=== PATIENT | female | born 1955 | race Caucasian/White ===

== ENCOUNTER 2020-11-26 01:05 | Inpatient (IN) ==
[2020-11-26] MEDS ORDERED: SODIUM CHLORIDE 500 ML IV STA (01:31)
[2020-11-26 01:40] LABS: BASOPHILS % (AUTO) 0.2 % (0.0-3.0); EOSINOPHILS # (AUTO) 0.1 K/ul (0.0-0.7); EOSINOPHILS % (AUTO) 0.8 % (0.0-7.0); HEMATOCRIT 38.6 % (37.0-47.0); HEMOGLOBIN 12.8 g/dl (12.0-16.0); IMMATURE GRANULOCYTE % (AUTO) 0.3 % (0.0-5.0); LYMPHOCYTES # (AUTO) 1.2 K/uL (0.60-3.4); LYMPHOCYTES % (AUTO) 12.3 (10.0-50.0); MEAN CORPUSCULAR HEMOGLOBIN 29.9 pg (27.0-31.0); MEAN CORPUSCULAR HGB CONC 33.2 (31.8-35.4); MEAN CORPUSCULAR VOLUME 90.2 fl (81.0-99.0); MONOCYTES # (AUTO) 0.3 K/uL (0.4-2.0); MONOCYTES % (AUTO) 3.1 (0-10); NEUTROPHILS # (AUTO) 8.3 K/ul (2.0-6.9); NEUTROPHILS % (AUTO) 83.3 % (42.2-75.2); PLATELET COUNT 347 10^3/uL (140-440); RDW COEFFICIENT OF VARIATION 12.4 % (11.6-14.8); RED BLOOD COUNT 4.28 10^6/ul (4.20-5.40)
[2020-11-26 01:46] LABS: BORDETELLA PARAPERTUSSIS (PCR) NOT DETECTED (NOT DETECT); BORDETELLA PERTUSSIS (PCR) NOT DETECTED (NOT DETECT); CHLAMYDIA PNEUMONIAE (PCR) NOT DETECTED (NOT DETECT); CORONAVIRUS 229E (PCR) NOT DETECTED (NOT DETECT); CORONAVIRUS HKU1 (PCR) NOT DETECTED (NOT DETECT); CORONAVIRUS NL63 (PCR) NOT DETECTED (NOT DETECT); CORONAVIRUS OC43 (PCR) NOT DETECTED (NOT DETECT); HUMAN METAPNEUMOVIRUS (PCR) NOT DETECTED (NOT DETECT); HUMAN RHINOVIRUS/ENTEROV (PCR) NOT DETECTED (NOT DETECT); INFLUENZA B (PCR) NOT DETECTED (NOT DETECT); MYCOPLASMA PNEUMONIAE (PCR) NOT DETECTED (NOT DETECT); PARAINFLUENZA VIRUS 1 (PCR) NOT DETECTED (NOT DETECT); PARAINFLUENZA VIRUS 2 (PCR) NOT DETECTED (NOT DETECT); PARAINFLUENZA VIRUS 3 (PCR) NOT DETECTED (NOT DETECT); PARAINFLUENZA VIRUS 4 (PCR) NOT DETECTED (NOT DETECT); RESPIRATORY SYNCYTIAL V (PCR) NOT DETECTED (NOT DETECT); SARS_COV_2 (PCR) NOT DETECTED (NOT DETECT)
[2020-11-26 01:52] LABS: ALANINE AMINOTRANSFERASE 25.4 U/L (0-35); ALBUMIN 3.93 g/dL (3.5-5.0); ALKALINE PHOSPHATASE 144.7 U/L (53-141); AMYLASE 43.1 U/L (30-110); ASPARTATE AMINO TRANSFERASE 34.8 U/L (14-36); BILIRUBIN,TOTAL 0.69 mg/dL (0.2-1.3); BLOOD UREA NITROGEN 16.3 mg/dL (7-17); CALCIUM 8.84 mg/dL (8.4-10.2); CARBON DIOXIDE 28.3 mmol/L (22-30.0); CHLORIDE 100.7 mmol/L (98-107); CREATINE KINASE 36.1 U/L (30-135); CREATININE 0.86 mg/dL (0.60-1.30); GLUCOSE 247.6 mg/dL (74-106); LIPASE 58.1 U/L (23-300); POTASSIUM 4.07 mmol/L (3.5-5.1); SODIUM 137.3 mmol/L (134.5-145); TOTAL PROTEIN 7.69 g/dL (6.3-8.2)
[2020-11-26 02:04] LABS: TROPONIN I 0.015 ng/ml (0.0000-0.120)
--- NOTE | 2020-11-26 02:15 | CT ---
EXAM: CT scan brain without contrast HISTORY: Altered mental status COMPARISON: None. FINDINGS: Contiguous axial images obtained from skull base to the convexities without contrast utili zing 5-mm collimation. Sagittal and coronal reconstructions were imaged and reviewed.. The ventricl es and CSF spaces are prominent compatible with age appropriate atrophy. There is periventricular hy podensity noted compatible with chronic microvascular disease. There are no acute intracranial findi ngs. Atherosclerotic changes are seen involving the bilateral vertebral and cavernous internal carot id arteries. The visualized paranasal sinuses mastoid air cells are clear. The calvarium is intact. IMPRESSION: No acute intracranial findings All CT scans are performed using dose optimization techniques as appropriate to the performed exam an d include at least one of the following: Automated exposure control, adjustment of the mA and/or kV according t o size, and the use of iterative reconstruction technique.
[2020-11-26] MEDS ORDERED: VASOTEC IV IVP STA (02:16)
[2020-11-26] MEDS ORDERED: TRANDATE IVP STA (02:17)
[2020-11-26 02:18] LABS: ABG PH 7.39 (7.35-7.45); BEecf 2.2 (-2.0-3.0)
[2020-11-26 02:19] LABS: COHb 2.6 (0.5-1.5); HCO3 27.2 (21-28); TCO2 28.1 (19-24); sO2 87.9 % (94-98); tHb 13.3 g/dl (11.7-17.4)
[2020-11-26 02:20] LABS: ABG O2 HGB 90.2 % (95-100)
--- NOTE | 2020-11-26 02:23 | CT ---
EXAM: CT of the abdomen and pelvis without contrast. HISTORY: Vomiting. PROCEDURE: Contiguous axial CT images of the abdomen and pelvis without contrast with coronal and sa gittal reformats. All CT scans are performed using dose optimization techniques as appropriate to a performed exam including the following: Automated exposure control, Adjustment of the mA and/or kV ac cording to patient size, Use of iterative reconstruction technique. FINDINGS: There is minimal bibasilar atelectasis. The liver is normal in appearance. There are gall stones in the gallbladder. The gallbladder is within normal limits in size. The pancreas, spleen, a drenal glands and kidneys are normal in appearance. The abdominal aorta is within normal limits in s ize. The appendix is normal in appearance. There is fecal stasis in the colon. There is diverticul osis of the colon with no evidence of diverticulitis. No free fluid or free air in the abdomen or pe lvis. The bladder is adequately filled and normal in appearance. The uterus is surgically absent. There are two fluid density cyst in the left adnexa measuring up to 2.6 cm. There is minimal strandin g of the subcutaneous fat in the anterior wall of the pelvis, consistent with cellulitis. There are degenerative changes in the spine. Impression: Cholelithiasis as described. Colonic diverticulosis without diverticulitis. Colonic fecal stasis as described. Left adnexal simple cysts measuring up to 2.6 cm. Cellulitis as described. Hysterectomy. Bibasilar atelectasis. All CT scans are performed using dose optimization techniques as appropriate to the performed exam an d include at least one of the following: Automated exposure control, adjustment of the mA and/or kV according t o size, and the use of iterative reconstruction technique.
--- NOTE | 2020-11-26 02:25 | DI ---
EXAM: AP single view of the chest. HISTORY: Vomiting. FINDINGS: The bones are unremarkable. The cardiac silhouette is enlarged. The pulmonary vasculature is within normal limits. The costophrenic angles are clear. There is eventration of the right randy diaphragm. No infiltrate or consolidation. Impression: Cardiomegaly. Eventration of the right hemidiaphragm.
[2020-11-26 02:30] LABS: ADENOVIRUS (PCR) NOT DETECTED (NOT DETECT)
[2020-11-26 03:30] LABS: BILIRUBIN,URINE Negative (NEGATIVE); CLARITY,URINE Cloudy (CLEAR); COLOR,URINE Yellow (YELLOW); GLUCOSE, URINE (UA) 2+ (NEGATIVE); KETONES,URINE 2+ (NEGATIVE); LEUKOCYTE ESTERASE ,URINE Negative (NEGATIVE); NITRITE,URINE Positive (NEGATIVE); PH,URINE 6.5 (5-9); PROTEIN,URINE 2+ (NEGATIVE); URINE, BLOOD Trace-intact (NEGATIVE)
[2020-11-26 03:35] LABS: BACTERIA,URINE 4+ (NOT PRESENT)
[2020-11-26 03:39] LABS: AMPHETAMINE SCREEN,URINE NEGATIVE (NEGATIVE); BARBITURATE SCREEN,URINE NEGATIVE (NEGATIVE); BENZODIAZEPINES SCREEN,URINE NEGATIVE (NEGATIVE); CANNABINOID SCREEN,URINE NEGATIVE (NEGATIVE); COCAIN SCREEN,URINE NEGATIVE (NEGATIVE); METHADONE URINE SCREEN NEGATIVE (NEGATIVE); METHAMPHETAMINES SCREEN,URINE POSITIVE (NEGATIVE); OPIATE SCREEN,URINE NEGATIVE (NEGATIVE); OXYCODONE URINE SCREEN NEGATIVE (NEGATIVE); PHENCYCLIDINE SCREEN,URINE NEGATIVE (NEGATIVE); PROPOXYPHENE URINE SCREEN NEGATIVE (NEGATIVE); TRICYCLIC ANTIDEPRESSANTS URIN NEGATIVE (NEGATIVE)
[2020-11-26] MEDS ORDERED: ROCEPHIN 1 GM/50 ML D5W 1 GM/50 ML BAG IV STA (03:53)
--- NOTE | 2020-11-26 03:57 | ED.PDOC ---
General ED Provider: Dr. GAB TRAYLOR Chief Complaint: Non-specific Complaint Stated Complaint: she is not acting right--she is very sleepy and diffcult to rouse Time Seen by Provider: 11/26/20 01:15 Mode of Arrival: Wheelchair Information Source: Family and Other Exam Limitations: Altered mental status Primary Care Provider: JASIEL CAMP MD Nursing and Triage Documentation Reviewed and Agree: Yes Does patient meet sepsis criteria?: No System Inflammatory Response Syndrome: Not Applicable Sepsis Protocol: For patient's 13 years and over: Temp is 96.8 and below OR 101 and greater Pulse >90 BPM Resp >20/minute Acutely Altered Mental Status Are patient's symptoms suggestive of a new infection, such as: -Pneumonia -Skin, Soft Tissue -Endocarditis -UTI -Bone, Joint Infection -Implantable Device -Acute Abdominal Infection -Wound Infection -Meningitis -Blood Stream Catheter Infection -Unknown Neurological Complaint Exam Altered Mental Status Complaint/Exam Current Mental Status: Unresponsiveness Last Known Well: yesterday Onset: Sudden Duration: several hours Symptoms Are: Still present Timing: Constant Episodes Lasting: Hours Initial Severity: Mild Current Severity: Moderate Eye Deviation Present: No Character: Reports Confusion, Responsiveness and Lethargy Aggravating: Reports None Alleviating: Reports None Associated Signs and Symptoms: Reports Weakness, Nausea and Vomiting CVA Risk Factors: Reports Diabetes and Hypertension Carotid Bruit Present: No Nystagmus Present: No Gag Reflex Present: Yes Meningeal Signs Positive: No Focal Weakness: Present None Focal Sensory Loss: Present None Gait: Normal [id number]: Normal Findings Romberg Test Positive: No Babinski Sign: Negative Right and Negative Left Heel to Toe Normal: Yes Signs of Injury: Present Normal findings Thrombolytics Considered: No Differential Diagnoses: Intoxication, Intracranial Bleed, Metabolic Disorder, Hypoglycemia, Sepsis and CVA Review of Systems Review Of Systems Constitutional: Reports Weakness Eyes: Reports No symptoms Ears, Nose, Mouth, Throat: Reports No symptoms Respiratory: Reports No symptoms Cardiac: Reports No symptoms GI: Reports Abdominal pain, Nausea and Vomiting : Reports No symptoms Musculoskeletal: Reports No symptoms Skin: Reports No symptoms Neurological: Reports No symptoms Endocrine: Reports No symptoms Hematologic/Lymphatic: Reports No symptoms All Other Systems: Reviewed and Negative PFSH Female Reproductive History Menstrual Hx Hysterectomy: Yes (says approx 1987) Hx Tubal Ligation: No Physical Exam Physical Exam Appearance: Reports Ill-appearing Ill-appearing: Moderate Pain Distress: Not Applicable Eyes: Reports BERONICA, EOMI and Conjunctiva clear ENT: Reports Ears normal, Nose normal and Oropharynx normal Neck: Supple Respiratory: Reports Airway patent, Breath sounds clear and Breath sounds equal Cardiovascular: Reports RRR, Pulses normal, No rub and No murmur GI/: Reports Soft, Nontender, No masses, Bowel sounds normal and No Organomegaly Musculoskeletal: Reports Normal strength, ROM intact, No edema and No calf tenderness Skin: Reports Warm, Dry and Normal color Neurological: Reports Sensation intact, Motor intact, Reflexes intact, Cranial nerves intact, Alert and Oriented Psychiatric: Reports Affect appropriate and Mood appropriate Interpretation Radiology Interpretation Radiology Interpretation By: Radiologist Radiology Results: Negative Exam Interpreted: Portable CXR and CT Scan Physician Notification Case Discussed Physician Notified: dr camp accepted Time of Notification: 06:09 Critical Care Note Critical Care Note Total Critical Care Time (mins): 30 Course Course Hematology/Chemistry: 11/26/20 01:30 11/26/20 01:30 Orders, Labs, Meds: Lab Review 11/26/20 11/26/20 11/26/20 01:30 01:30 01:30 WBC 10.00 RBC 4.28 Hgb 12.8 Hct 38.6 MCV 90.2 MCH 29.9 MCHC 33.2 RDW Coeff of James 12.4 Plt Count 347 Immature Gran % (Auto) 0.3 Neut % (Auto) 83.3 H Lymph % (Auto) 12.3 [place] % (Auto) 3.1 Eos % (Auto) 0.8 Baso % (Auto) 0.2 Neut # (Auto) 8.3 H Lymph # (Auto) 1.2 [place] # (Auto) 0.3 L Eos # (Auto) 0.1 Baso # (Auto) 0.0 Immature Gran # (Auto) 0.0 Puncture Site Rrad Base Excess 2.2 O2 Saturation 87.9 L ABG pH 7.39 ABG pCO2 45.0 ABG pO2 55.0 L* ABG HCO3 27.2 ABG Total CO2 28.1 H Harry Test + Hemoglobin 1.0 Oxyhemoglobin 90.2 L Carboxyhemoglobin 2.6 H Total Hemoglobin 13.3 FiO2 % 21.0 Sodium 137.3 Potassium 4.07 Chloride 100.7 Carbon Dioxide 28.3 Anion Gap 12.37 BUN 16.3 Creatinine 0.86 Estimated GFR (MDRD) 67.00 BUN/Creatinine Ratio 18.95 Glucose 247.6 H Lactic Acid Calcium 8.84 Total Bilirubin 0.69 AST 34.8 ALT 25.4 Alkaline Phosphatase 144.7 H Ammonia Total Creatine Kinase 36.1 Troponin I 0.015 Total Protein 7.69 Albumin 3.93 Globulin 3.76 Albumin/Globulin Ratio 1.04 Amylase 43.1 Lipase 58.1 Procalcitonin D-Dimer Urine Color Urine Clarity Urine pH Ur Specific [place] Urine Protein Urine Glucose (UA) Urine Ketones Urine Blood Urine Nitrite Urine Bilirubin Urine Urobilinogen Ur Leukocyte Esterase Urine Microscopic WBC Ur Squamous Epith Cells Urine Bacteria Urine Opiates Screen Ur Oxycodone Screen Urine Methadone Screen Ur Propoxyphene Screen Ur Barbiturates Screen U Tricyclic Antidepress Ur Phencyclidine Scrn Ur Amphetamine Screen U Methamphetamines Scrn U Benzodiazepines Scrn Urine Cocaine Screen U Cannabinoids Screen Plasma/Serum Alcohol Adenovirus (PCR) B. pertussis DNA (PCR) B.parapertussis DNA PCR C. pneumoniae DNA (PCR) Coronavirus OC43 (PCR) Coronavirus HKU1 (PCR) Coronavirus 229E (PCR) Coronavirus NL63 (PCR) Human Metapneumovir PCR Influenza Type A (PCR) Influenza B (RT-PCR) M. pneumoniae (PCR) Parainfluenza 1 (PCR) Parainfluenza 2 (PCR) Parainfluenza 3 (PCR) Parainfluenza 4 (PCR) RSV (PCR) Entero/Rhino (PCR) SARS-CoV-2 (PCR) 11/26/20 11/26/20 11/26/20 01:30 03:20 03:20 WBC RBC Hgb Hct MCV MCH MCHC RDW Coeff of James Plt Count Immature Gran % (Auto) Neut % (Auto) Lymph % (Auto) [place] % (Auto) Eos % (Auto) Baso % (Auto) Neut # (Auto) Lymph # (Auto) [place] # (Auto) Eos # (Auto) Baso # (Auto) Immature Gran # (Auto) Puncture Site Base Excess O2 Saturation ABG pH ABG pCO2 ABG pO2 ABG HCO3 ABG Total CO2 Harry Test Hemoglobin Oxyhemoglobin Carboxyhemoglobin Total Hemoglobin FiO2 % Sodium Potassium Chloride Carbon Dioxide Anion Gap BUN Creatinine Estimated GFR (MDRD) BUN/Creatinine Ratio Glucose Lactic Acid Calcium Total Bilirubin AST ALT Alkaline Phosphatase Ammonia Total Creatine Kinase Troponin I Total Protein Albumin Globulin Albumin/Globulin Ratio Amylase Lipase Procalcitonin D-Dimer Urine Color Yellow Urine Clarity Cloudy Urine pH 6.5 Ur Specific [place] 1.025 Urine Protein 2+ H Urine Glucose (UA) 2+ H Urine Ketones 2+ H Urine Blood Trace-intact H Urine Nitrite Positive H Urine Bilirubin Negative Urine Urobilinogen 1.0 H Ur Leukocyte Esterase Negative Urine Microscopic WBC 5-10 Ur Squamous Epith Cells 2-5 Urine Bacteria 4+ Urine Opiates Screen Negative Ur Oxycodone Screen Negative Urine Methadone Screen Negative Ur Propoxyphene Screen Negative Ur Barbiturates Screen Negative U Tricyclic Antidepress Negative Ur Phencyclidine Scrn Negative Ur Amphetamine Screen Negative U Methamphetamines Scrn Positive H U Benzodiazepines Scrn Negative Urine Cocaine Screen Negative U Cannabinoids Screen Negative Plasma/Serum Alcohol Adenovirus (PCR) Not detected B. pertussis DNA (PCR) Not detected B.parapertussis DNA PCR Not detected C. pneumoniae DNA (PCR) Not detected Coronavirus OC43 (PCR) Not detected Coronavirus HKU1 (PCR) Not detected Coronavirus 229E (PCR) Not detected Coronavirus NL63 (PCR) Not detected Human Metapneumovir PCR Not detected Influenza Type A (PCR) Not detected Influenza B (RT-PCR) Not detected M. pneumoniae (PCR) Not detected Parainfluenza 1 (PCR) Not detected Parainfluenza 2 (PCR) Not detected Parainfluenza 3 (PCR) Not detected Parainfluenza 4 (PCR) Not detected RSV (PCR) Not detected Entero/Rhino (PCR) Not detected SARS-CoV-2 (PCR) Not detected 11/26/20 11/26/20 11/26/20 04:00 04:00 04:00 WBC RBC Hgb Hct MCV MCH MCHC RDW Coeff of James Plt Count Immature Gran % (Auto) Neut % (Auto) Lymph % (Auto) [place] % (Auto) Eos % (Auto) Baso % (Auto) Neut # (Auto) Lymph # (Auto) [place] # (Auto) Eos # (Auto) Baso # (Auto) Immature Gran # (Auto) Puncture Site Base Excess O2 Saturation ABG pH ABG pCO2 ABG pO2 ABG HCO3 ABG Total CO2 Harry Test Hemoglobin Oxyhemoglobin Carboxyhemoglobin Total Hemoglobin FiO2 % Sodium Potassium Chloride Carbon Dioxide Anion Gap BUN Creatinine Estimated GFR (MDRD) BUN/Creatinine Ratio Glucose Lactic Acid 1.35 Calcium Total Bilirubin AST ALT Alkaline Phosphatase Ammonia < 8.7 L Total Creatine Kinase Troponin I Total Protein Albumin Globulin Albumin/Globulin Ratio Amylase Lipase Procalcitonin < 0.05 D-Dimer Urine Color Urine Clarity Urine pH Ur Specific [place] Urine Protein Urine Glucose (UA) Urine Ketones Urine Blood Urine Nitrite Urine Bilirubin Urine Urobilinogen Ur Leukocyte Esterase Urine Microscopic WBC Ur Squamous Epith Cells Urine Bacteria Urine Opiates Screen Ur Oxycodone Screen Urine Methadone Screen Ur Propoxyphene Screen Ur Barbiturates Screen U Tricyclic Antidepress Ur Phencyclidine Scrn Ur Amphetamine Screen U Methamphetamines Scrn U Benzodiazepines Scrn Urine Cocaine Screen U Cannabinoids Screen Plasma/Serum Alcohol Adenovirus (PCR) B. pertussis DNA (PCR) B.parapertussis DNA PCR C. pneumoniae DNA (PCR) Coronavirus OC43 (PCR) Coronavirus HKU1 (PCR) Coronavirus 229E (PCR) Coronavirus NL63 (PCR) Human Metapneumovir PCR Influenza Type A (PCR) Influenza B (RT-PCR) M. pneumoniae (PCR) Parainfluenza 1 (PCR) Parainfluenza 2 (PCR) Parainfluenza 3 (PCR) Parainfluenza 4 (PCR) RSV (PCR) Entero/Rhino (PCR) SARS-CoV-2 (PCR) 11/26/20 11/26/20 04:00 04:00 WBC RBC Hgb Hct MCV MCH MCHC RDW Coeff of James Plt Count Immature Gran % (Auto) Neut % (Auto) Lymph % (Auto) [place] % (Auto) Eos % (Auto) Baso % (Auto) Neut # (Auto) Lymph # (Auto) [place] # (Auto) Eos # (Auto) Baso # (Auto) Immature Gran # (Auto) Puncture Site Base Excess O2 Saturation ABG pH ABG pCO2 ABG pO2 ABG HCO3 ABG Total CO2 Harry Test Hemoglobin Oxyhemoglobin Carboxyhemoglobin Total Hemoglobin FiO2 % Sodium Potassium Chloride Carbon Dioxide Anion Gap BUN Creatinine Estimated GFR (MDRD) BUN/Creatinine Ratio Glucose Lactic Acid Calcium Total Bilirubin AST ALT Alkaline Phosphatase Ammonia Total Creatine Kinase Troponin I Total Protein Albumin Globulin Albumin/Globulin Ratio Amylase Lipase Procalcitonin D-Dimer 1106.55 H Urine Color Urine Clarity Urine pH Ur Specific [place] Urine Protein Urine Glucose (UA) Urine Ketones Urine Blood Urine Nitrite Urine Bilirubin Urine Urobilinogen Ur Leukocyte Esterase Urine Microscopic WBC Ur Squamous Epith Cells Urine Bacteria Urine Opiates Screen Ur Oxycodone Screen Urine Methadone Screen Ur Propoxyphene Screen Ur Barbiturates Screen U Tricyclic Antidepress Ur Phencyclidine Scrn Ur Amphetamine Screen U Methamphetamines Scrn U Benzodiazepines Scrn Urine Cocaine Screen U Cannabinoids Screen Plasma/Serum Alcohol < 10.0 Adenovirus (PCR) B. pertussis DNA (PCR) B.parapertussis DNA PCR C. pneumoniae DNA (PCR) Coronavirus OC43 (PCR) Coronavirus HKU1 (PCR) Coronavirus 229E (PCR) Coronavirus NL63 (PCR) Human Metapneumovir PCR Influenza Type A (PCR) Influenza B (RT-PCR) M. pneumoniae (PCR) Parainfluenza 1 (PCR) Parainfluenza 2 (PCR) Parainfluenza 3 (PCR) Parainfluenza 4 (PCR) RSV (PCR) Entero/Rhino (PCR) SARS-CoV-2 (PCR) Orders Category Date Time Status ABG DRAW REQUEST Stat CARDIO 11/26/20 01:30 Completed EKG-(ED ONLY) Stat CARDIO 11/26/20 01:29 Completed NPO REMINDER: IMAGING ONCE CARE 11/26/20 04:40 Completed STRAIGHT CATH INSERTION ONCE CARE 11/26/20 01:34 Active ED ACCUCHECK ASSESSMENT .ONCE EMERGENCY 11/26/20 01:49 Active ED CENTRAL OFFICE TECHNICIAN APPLIED .ONCE EMERGENCY 11/26/20 01:29 Active ED IV/MEDIPORT/POWERPORT .ONCE EMERGENCY 11/26/20 01:29 Active ABG COOX Stat LAB 11/26/20 01:30 Completed AMMONIA Stat LAB 11/26/20 04:00 Completed AMYLASE Stat LAB 11/26/20 01:30 Completed BLOOD ALCOHOL Stat LAB 11/26/20 04:00 Completed BLOOD CULTURE (ED ONLY) Stat LAB 11/26/20 04:00 Received CBC W/ AUTO DIFF Stat LAB 11/26/20 01:30 Completed COMPREHENSIVE METABOLIC PANEL Stat LAB 11/26/20 01:30 Completed CREATINE KINASE Stat LAB 11/26/20 01:30 Completed D-DIMER Stat LAB 11/26/20 04:00 Completed DRUG SCREEN, URINE, RAPID Stat LAB 11/26/20 03:20 Completed LACTIC ACID Stat LAB 11/26/20 04:00 Completed LIPASE Stat LAB 11/26/20 01:30 Completed PROCALCITONIN Stat LAB 11/26/20 04:00 Completed RESPIRATORY PANEL 2.1 (PCR) Stat LAB 11/26/20 01:30 Completed TROPONIN I Stat LAB 11/26/20 01:30 Completed URINALYSIS C & S IF INDICATED Stat LAB 11/26/20 03:20 Completed URINE CULTURE Stat LAB 11/26/20 03:20 Received 0.9 % Sodium Chloride [Saline Flush] MEDS 11/26/20 01:29 Active 1 syr IVF PRN PRN Ceftriaxone/D5w 1 gm Premix [Rocephin 1 gm/50 ml D5w] MEDS 11/26/20 03:53 Discontinued 1 gm in 50 ml IV ONCE Enalaprilat Dihydrate [Vasotec IV] MEDS 11/26/20 02:16 Discontinued 5 mg IVP ONCE STA Labetalol HCl [Trandate] MEDS 11/26/20 02:17 Discontinued 20 mg IVP ONCE STA Nicardipine in NaCl, Iso-Osm [Cardene 20 mg/200 ml NaCl MEDS 11/26/20 04:30 Active ] 20 mg in 200 ml IV TITRATION Sodium Chloride 0.9% [Sodium Chloride] 1,000 ml MEDS 11/26/20 03:59 Active IV 125 mls/hr Sodium Chloride 0.9% [Sodium Chloride] 500 ml MEDS 11/26/20 01:31 Active IV 100 mls/hr CHEST, 1V AP ONLY Stat RADS 11/26/20 01:[address] ABDOMEN/PELVIS WO CONTRAST Stat RADS 11/26/20 01:[address] CHEST PE PROTOCOL Stat RADS 11/26/20 04:[address] HEAD W/O CONTRAST Stat RADS 11/26/20 01:29 Completed Medications Generic Name Dose Route Start Last Admin Trade Name Freq PRN Reason Stop Dose Admin Sodium Chloride 500 mls @ 100 mls/hr 11/26/20 01:31 11/26/20 01:42 Sodium Chloride IV 11/26/20 06:30 100 mls/hr .Q5H STA Administration Sodium Chloride 1,000 mls @ 125 mls/hr 11/26/20 03:59 Sodium Chloride IV 11/26/20 11:58 .Q8H STA Nicardipine/Sodium Chloride 20 mg in 200 mls @ 50 mls/hr 11/26/20 04:30 11/26/20 05:17 Cardene 20 Mg/200 Ml Nacl IV 5 mg/hr TITRATION MELI 50 mls/hr Titration Protocol 5 MG/HR Sodium Chloride 1 syr 11/26/20 01:29 0.9% Sodium Chloride 10 Ml Disp.Syrin IVF PRN PRN To flush IV Discontinued Medications Generic Name Dose Route Start Last Admin Trade Name Freq PRN Reason Stop Dose Admin Enalaprilat 5 mg 11/26/20 02:16 11/26/20 02:21 Enalaprilat Dihydrate 1.25 Mg/Ml Vial IVP 11/26/20 02:17 5 mg ONCE STA Administration CEFTRIAXONE/D5W 1 GM PREMIX 1 gm in 50 mls @ 75 mls/hr 11/26/20 03:53 11/26/20 03:58 Rocephin 1 Gm/50 Ml D5w IV 11/26/20 04:32 75 mls/hr ONCE STA Administration Labetalol HCl 20 mg 11/26/20 02:17 11/26/20 02:21 Labetalol Hcl 20 Mg/4 Ml Disp.Syrin IVP 11/26/20 02:18 20 mg ONCE STA Administration Vital Signs: Temp Pulse Resp BP Pulse Ox 11/26/20 04:00 178/92 H 11/26/20 01:13 97.5 F L 114 H 16 191/112 H 93 L Discharge Plan Discharge Patient Disposition: ADMITTED INPATIENT Discharge Problem: Encephalopathy acute, Malignant hypertension, UTI (urinary tract infection) Instructions: Encephalopathy (DC) Prescriptions: No Action dextroamphetamine-amphetamine [Adderall] 20 mg Tablet 20 mg PO DAILY RF: 0 insulin aspart U-100 [Novolog U-100 Insulin aspart] 100 unit/mL Solution 15 unit subcut BID RF: 0 atenolol 25 mg tablet 25 mg PO DAILY Qty: 7 RF: 0 insulin detemir U-100 100 unit/mL solution 30 unit subcut BID Qty: 10 RF: 0 gabapentin 300 mg capsule 300 mg PO BID Qty: 14 RF: 0 furosemide [Lasix] 20 mg tablet 20 mg PO DAILY Qty: 7 RF: 0 lisinopril 20 mg tablet 20 mg PO DAILY Qty: 7 RF: 0 escitalopram oxalate 20 mg tablet 20 mg PO DAILY Qty: 7 RF: 0 ED Provider: GAB PANDA Condition: Fair Physician Progress Note: [[facility], [facility], [facility], and [place]--no beds availabe.]
[2020-11-26] MEDS ORDERED: SODIUM CHLORIDE 1,000 ML IV STA (03:59)
[2020-11-26] MEDS: CARDENE 20 MG/200 ML NACL 20 MG/200 ML BAG IV SCH (04:56)
--- NOTE | 2020-11-26 05:35 | CT ---
EXAM: CT angiogram chest with intravenous contrast 11/26/2020. Multi planar reformatted images obta ined MIP and three-dimensional reconstructed images provided HISTORY: Hypoxia. Elevated D-dimer COMPARISON: 11/26/2020 FINDINGS: The heart size appears within normal limits. There is no pericardial effusion. There is no pulmonary arterial filling defect to suggest pulmonary embolus. Small subsegmental arter ial branches are partially obscured by motion. Multifocal atelectasis and/or pneumonia. This is most prominent within the right lower lobe No pleural effusion. No pneumothorax. Limited views of the upper abdomen shows no acute process. Cholelithiasis. IMPRESSION: 1. Interstitial infiltrate within both lungs most prominent at the right lung base. This may repres ent a combination of atelectasis and/or pneumonia. 2. No visualized pulmonary embolus. Small subsegmental arterial branches are partially obscured by motion. 3. Cholelithiasis. All CT scans are performed using dose optimization techniques as appropriate to the performed exam an d include at least one of the following: Automated exposure control, adjustment of the mA and/or kV according t o size, and the use of iterative reconstruction technique.
[2020-11-26] MEDS ORDERED: CARDENE 20 MG/200 ML NACL 20 MG/200 ML BAG IV SCH (06:30)
[2020-11-26] MEDS: SODIUM CHLORIDE 1,000 ML IV SCH ×2 (07:28→16:23)
[2020-11-26 08:33] VITALS: BMI 36.5
[2020-11-26] MEDS ORDERED: ALBUTEROL 0.042% NEB NEB SCH (09:00)
[2020-11-26] MEDS: DOXY-100 100 MG in SODIUM CHLORIDE 100ML 100 ML IV SCH ×2 (09:54→20:32)
[2020-11-26] MEDS: HUMULIN R SUBCUT PRN ×3 (09:54→20:32)
[2020-11-26] MEDS: LOVENOX SUBCUT SCH (09:55)
[2020-11-26] MEDS ORDERED: ALBUTEROL 0.083% NEB NEB PRN (10:55)
[2020-11-27] MEDS: SODIUM CHLORIDE 1,000 ML IV SCH (02:23)
[2020-11-27 05:36] LABS: BASOPHILS % (AUTO) 0.3 % (0.0-3.0); EOSINOPHILS # (AUTO) 0.2 K/ul (0.0-0.7); HEMATOCRIT 33.4 % (37.0-47.0); IMMATURE GRANULOCYTE % (AUTO) 0.1 % (0.0-5.0); LYMPHOCYTES # (AUTO) 2.7 K/uL (0.60-3.4); LYMPHOCYTES % (AUTO) 36.4 (10.0-50.0); MEAN CORPUSCULAR HEMOGLOBIN 30.6 pg (27.0-31.0); MEAN CORPUSCULAR HGB CONC 32.9 (31.8-35.4); MEAN CORPUSCULAR VOLUME 92.8 fl (81.0-99.0); MONOCYTES # (AUTO) 0.7 K/uL (0.4-2.0); MONOCYTES % (AUTO) 8.8 (0-10); NEUTROPHILS # (AUTO) 3.9 K/ul (2.0-6.9); NEUTROPHILS % (AUTO) 52.4 % (42.2-75.2); PLATELET COUNT 306 10^3/uL (140-440); RDW COEFFICIENT OF VARIATION 12.9 % (11.6-14.8); WHITE BLOOD COUNT 7.51 K/ul (4.6-10.2)
[2020-11-27 05:49] LABS: ALANINE AMINOTRANSFERASE 16.2 U/L (0-35); ALBUMIN 2.96 g/dL (3.5-5.0); ALKALINE PHOSPHATASE 100.6 U/L (53-141); ASPARTATE AMINO TRANSFERASE 20.6 U/L (14-36); BILIRUBIN,TOTAL 0.43 mg/dL (0.2-1.3); BLOOD UREA NITROGEN 18.9 mg/dL (7-17); CALCIUM 8.05 mg/dL (8.4-10.2); CARBON DIOXIDE 26.7 mmol/L (22-30.0); CHLORIDE 105.2 mmol/L (98-107); CREATININE 0.94 mg/dL (0.60-1.30); GLUCOSE 279.7 mg/dL (74-106); POTASSIUM 3.38 mmol/L (3.5-5.1); SODIUM 137.7 mmol/L (134.5-145); TOTAL PROTEIN 6.04 g/dL (6.3-8.2)
[2020-11-27] MEDS: CARDENE 20 MG/200 ML NACL 20 MG/200 ML BAG IV SCH (05:56)
[2020-11-27] MEDS: HUMULIN R SUBCUT PRN ×2 (06:16→13:26)
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
[2020-11-27] MEDS ORDERED: ROCEPHIN 1 GM/50 ML D5W 1 GM/50 ML BAG IV SCH (09:00)
[2020-11-27] MEDS ORDERED: COZAAR PO SCH (09:00)
[2020-11-27] MEDS: LOVENOX SUBCUT SCH (10:14)
[2020-11-27] MEDS: DOXY-100 100 MG in SODIUM CHLORIDE 100ML 100 ML IV SCH (10:33)
[2020-11-27 14:08] VITALS: BP 193/79; TEMP 97.4
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
== END 2020-11-27 14:50 | disposition home or self-care (01) | DRG 70 ==
LOC: ED 01:05 → MEDSURG A 06:23
PROVIDERS: ADMIT Family Medicine; ATTEND Internal Medicine Geriatric Medicine
DX: G93.40 Encephalopathy, unspecified; F19.90 Other psychoactive substance use, unspecified, uncomplicated; J18.9 Pneumonia, unspecified organism; I15.2 Hypertension secondary to endocrine disorders; R79.9 Abnormal finding of blood chemistry, unspecified; E11.9 Type 2 diabetes mellitus without complications; I10 Essential (primary) hypertension; Z20.822 Contact with and (suspected) exposure to COVID-19; N39.0 Urinary tract infection, site not specified; E87.6 Hypokalemia; D64.9 Anemia, unspecified